=== PATIENT | male | born 1985 | race Caucasian/White ===

== ENCOUNTER 2017-02-26 17:38 | Inpatient (IN) | payer MEDICAID ==
[2017-02-26] MEDS ORDERED: ALBUTEROL NEB 2.5 MG/3 ML INH STA ×2 (18:04→19:17)
[2017-02-26] MEDS ORDERED: IBUPROFEN 800 MG TABLET PO STA (18:05)
[2017-02-26] MEDS ORDERED: DEXAMETHASONE 10 MG/ML VIAL PO STA (18:05)
[2017-02-26] MEDS ORDERED: ONDANSETRON ODT 4 MG TABLET TL STA (18:09)
[2017-02-26] MEDS ORDERED: ONDANSETRON ODT 4 MG TABLET ONE (18:09)
[2017-02-26] MEDS ORDERED: ALBUTEROL NEB 2.5 MG/3 ML INH ONE ×2 (18:11→19:24)
[2017-02-26] MEDS ORDERED: SODIUM CHLORIDE 0.9% 1,000 ML IV ONE ×5 (18:15→20:23)
[2017-02-26] MEDS ORDERED: DEXAMETHASONE 10 MG/ML VIAL ONE (18:46)
[2017-02-26] MEDS ORDERED: CHERRY SYRUP 10 ML UDC PO ONE (18:46)
[2017-02-26] MEDS ORDERED: IBUPROFEN 800 MG TABLET PO ONE (18:46)
[2017-02-26] MEDS ORDERED: ACETAMINOPHEN 325 MG TABLET PO STA (19:30)
[2017-02-26] MEDS ORDERED: ACETAMINOPHEN 325 MG TABLET PO ONE (19:35)
[2017-02-26] MEDS ORDERED: cefTRIAXone 1 GM in SODIUM CHLORIDE 0.9% MINIBAG 100 ML IV STA (19:56)
[2017-02-26] MEDS ORDERED: AZITHROMYCIN INJ 500 MG in SODIUM CHLORIDE 0.9% 250 ML IV STA (19:56)
[2017-02-26] MEDS ORDERED: HYDROmorphone 2 MG TABLET PO PRN (20:21)
[2017-02-26] MEDS ORDERED: ACETAMINOPHEN 325 MG TABLET PO PRN (20:24)
[2017-02-26] MEDS ORDERED: ONDANSETRON 4 MG/2 ML VIAL IVP PRN (20:24)
[2017-02-26] MEDS ORDERED: HYDROmorphone 1 MG/ML SYRINGE IVP PRN (20:24)
[2017-02-26] MEDS ORDERED: cefTRIAXone 1 GM VIAL ONE (20:30)
[2017-02-26] MEDS ORDERED: risperiDONE 1 MG TABLET PO SCH (21:00)
[2017-02-26] MEDS: IPRATROPIUM/ALBUTEROL 3 ML NEB INH SCH (21:40)
[2017-02-26] MEDS ORDERED: traZODone 50 MG TABLET PO SCH ×2 (22:00→22:06)
[2017-02-26] MEDS ORDERED: MIRTAZAPINE 15 MG TABLET PO SCH (22:00)
[2017-02-26] MEDS: methylPREDNISolone SUCCINATE 40 MG/ML VIAL IVP SCH (22:34)
[2017-02-26] MEDS: clonazePAM 0.5 MG TABLET PO SCH (22:37)
[2017-02-26] MEDS: MIRTAZAPINE 15 MG TABLET PO SCH (22:40)
[2017-02-26] MEDS: OXcarbazepine 150 MG TABLET PO SCH (22:43)
[2017-02-26] MEDS: oxyCODONE 5 MG TABLET PO PRN (22:51)
[2017-02-26] MEDS: SODIUM CHLORIDE 0.9% 1,000 ML IV SCH (23:47)
[2017-02-27] MEDS: SODIUM CHLORIDE FLUSH 0.9% 10 ML SYRINGE IVP SCH ×4 (00:34→23:10)
[2017-02-27] MEDS: SODIUM CHLORIDE 0.9% 1,000 ML IV SCH ×5 (04:54→23:37)
[2017-02-27] MEDS: methylPREDNISolone SUCCINATE 40 MG/ML VIAL IVP SCH ×3 (06:51→22:02)
[2017-02-27] MEDS: PANTOPRAZOLE 40 MG TABLET PO SCH (06:53)
[2017-02-27] MEDS: clonazePAM 0.5 MG TABLET PO SCH ×4 (06:54→22:02)
[2017-02-27] MEDS: IPRATROPIUM/ALBUTEROL 3 ML NEB INH SCH ×4 (07:45→19:15)
[2017-02-27] MEDS: SACCHAROMYCES BOULARDII 250 MG CAPSULE PO SCH ×2 (08:12→16:51)
[2017-02-27] MEDS: oxyCODONE 5 MG TABLET PO PRN ×2 (08:12→14:24)
[2017-02-27] MEDS ORDERED: QUEtiapine 25 MG TABLET PO SCH (09:00)
[2017-02-27] MEDS ORDERED: traZODone 50 MG TABLET PO SCH (09:00)
[2017-02-27] MEDS: HYDROmorphone 1 MG/ML SYRINGE IVP PRN ×3 (09:16→22:25)
[2017-02-27] MEDS: buPROPion SR 100 MG TABLET PO SCH (10:05)
[2017-02-27] MEDS: OXcarbazepine 150 MG TABLET PO SCH ×2 (10:05→22:02)
[2017-02-27] MEDS: TAMSULOSIN 0.4 MG CAPSULE PO SCH (10:06)
[2017-02-27] MEDS: POLYETHYLENE GLYCOL 3350 17 GM PACKET PO SCH (10:06)
[2017-02-27] MEDS: IBUPROFEN 400 MG TABLET PO PRN (12:41)
[2017-02-27] MEDS: cefTRIAXone 2 GM in SODIUM CHLORIDE 0.9% MINIBAG 100 ML IV SCH (20:46)
[2017-02-27] MEDS: MIRTAZAPINE 15 MG TABLET PO SCH (22:03)
[2017-02-27] MEDS: traZODone 50 MG TABLET PO SCH (22:03)
[2017-02-27] MEDS: AZITHROMYCIN INJ 500 MG in SODIUM CHLORIDE 0.9% 250 ML IV SCH (22:13)
[2017-02-28] MEDS: oxyCODONE 5 MG TABLET PO PRN ×2 (02:24→15:40)
[2017-02-28] MEDS: HYDROmorphone 1 MG/ML SYRINGE IVP PRN ×5 (02:57→21:25)
[2017-02-28] MEDS: SODIUM CHLORIDE FLUSH 0.9% 10 ML SYRINGE IVP SCH ×4 (02:58→18:23)
[2017-02-28] MEDS: methylPREDNISolone SUCCINATE 40 MG/ML VIAL IVP SCH (06:01)
[2017-02-28] MEDS: PANTOPRAZOLE 40 MG TABLET PO SCH (06:02)
[2017-02-28] MEDS: clonazePAM 0.5 MG TABLET PO SCH ×3 (06:02→21:25)
[2017-02-28] MEDS: IPRATROPIUM/ALBUTEROL 3 ML NEB INH PRN ×3 (07:35→15:15)
[2017-02-28] MEDS: SODIUM CHLORIDE FLUSH 0.9% 10 ML SYRINGE IVP PRN ×4 (07:58→21:25)
[2017-02-28] MEDS: VENLAFAXINE ER 75 MG CAPSULE PO SCH (09:07)
[2017-02-28] MEDS: OXcarbazepine 150 MG TABLET PO SCH ×2 (09:07→20:46)
[2017-02-28] MEDS: SACCHAROMYCES BOULARDII 250 MG CAPSULE PO SCH ×2 (09:07→18:32)
[2017-02-28] MEDS: ARIPiprazole 5 MG TABLET PO SCH (09:07)
[2017-02-28] MEDS: POLYETHYLENE GLYCOL 3350 17 GM PACKET PO SCH (09:08)
[2017-02-28] MEDS: buPROPion SR 100 MG TABLET PO SCH (09:08)
[2017-02-28] MEDS: TAMSULOSIN 0.4 MG CAPSULE PO SCH (09:12)
[2017-02-28] MEDS: cefTRIAXone 2 GM in SODIUM CHLORIDE 0.9% MINIBAG 100 ML IV SCH (20:05)
[2017-02-28] MEDS: AZITHROMYCIN INJ 500 MG in SODIUM CHLORIDE 0.9% 250 ML IV SCH (20:46)
[2017-02-28] MEDS: traZODone 50 MG TABLET PO SCH (20:46)
[2017-02-28] MEDS: MIRTAZAPINE 15 MG TABLET PO SCH (20:46)
[2017-02-28] MEDS: BENZONATATE 100 MG CAPSULE PO PRN (21:25)
[2017-03-01] MEDS: HYDROmorphone 1 MG/ML SYRINGE IVP PRN (01:41)
[2017-03-01] MEDS: IPRATROPIUM/ALBUTEROL 3 ML NEB INH PRN (01:55)
[2017-03-01] MEDS: oxyCODONE 5 MG TABLET PO PRN ×2 (05:18→09:27)
[2017-03-01] MEDS: SODIUM CHLORIDE FLUSH 0.9% 10 ML SYRINGE IVP SCH (06:25)
[2017-03-01] MEDS: clonazePAM 0.5 MG TABLET PO SCH (06:25)
[2017-03-01] MEDS: PANTOPRAZOLE 40 MG TABLET PO SCH (06:25)
[2017-03-01] MEDS: IBUPROFEN 400 MG TABLET PO PRN (06:33)
[2017-03-01] MEDS: BENZONATATE 100 MG CAPSULE PO PRN (06:34)
[2017-03-01] MEDS: POLYETHYLENE GLYCOL 3350 17 GM PACKET PO SCH (08:21)
[2017-03-01] MEDS: SACCHAROMYCES BOULARDII 250 MG CAPSULE PO SCH (08:22)
[2017-03-01] MEDS: TAMSULOSIN 0.4 MG CAPSULE PO SCH (08:22)
[2017-03-01] MEDS: buPROPion SR 100 MG TABLET PO SCH (08:22)
[2017-03-01] MEDS: ARIPiprazole 5 MG TABLET PO SCH (08:22)
[2017-03-01] MEDS: OXcarbazepine 150 MG TABLET PO SCH (08:23)
[2017-03-01] MEDS: VENLAFAXINE ER 75 MG CAPSULE PO SCH (08:24)
[2017-03-01] MEDS ORDERED: methylPREDNISolone SUCCINATE 40 MG/ML VIAL IVP SCH (09:00)
[2017-03-01] MEDS ORDERED: POTASSIUM CHLORIDE 10 MEQ CAPSULE PO SCH (15:00)
== END 2017-03-01 15:30 | disposition home or self-care (01) | DRG 871 ==
DX: A41.9 Sepsis, unspecified organism (principal); J18.9 Pneumonia, unspecified organism; J45.901 Unspecified asthma with (acute) exacerbation; F31.9 Bipolar disorder, unspecified; I95.9 Hypotension, unspecified; R09.02 Hypoxemia; F17.210 Nicotine dependence, cigarettes, uncomplicated; Z63.5 Disruption of family by separation and divorce

== ENCOUNTER 2017-08-13 12:04 | Emergency (ER) | payer MEDICAID ==
--- NOTE | 2017-08-13 12:56 | XRAY Preliminary Report ---
Exam: XR CHEST 2 VIEW PA/LAT IMPRESSION: Normal 2-view chest radiography. [facility] SITE ID: [id number]
--- NOTE | 2017-08-13 12:58 | XRAY Report ---
EXAM: CHEST RADIOGRAPHY EXAM DATE: 08/13/2017 12:44 PM. CLINICAL HISTORY: Cough. COMPARISON: None. TECHNIQUE: 2 views. FINDINGS: Lungs/Pleura: No focal opacities evident. No pleural effusion. No pneumothorax. Normal volumes. Mediastinum: Heart and mediastinal contours are unremarkable. Other: None. IMPRESSION: Normal 2-view chest radiography. [facility] Referring Provider Line: [phone] SITE ID: [id number]
[2017-08-13] MEDS ORDERED: guaiFENesin/DEXTROMETHORPHAN 10 ML UDC PO STA (15:44)
[2017-08-13] MEDS ORDERED: BENZONATATE 100 MG CAPSULE PO STA (15:44)
[2017-08-13] MEDS ORDERED: AZITHROMYCIN 250 MG TABLET PO STA (15:46)
[2017-08-13] MEDS ORDERED: guaiFENesin/DEXTROMETHORPHAN 10 ML UDC ONE (15:56)
[2017-08-13] MEDS ORDERED: BENZONATATE 100 MG CAPSULE PO ONE (15:56)
[2017-08-13] MEDS ORDERED: AZITHROMYCIN 250 MG TABLET PO ONE (15:56)
[2017-08-13 16:05] LABS: BASOPHILS # (AUTO) 0.1 10^3/uL (0.0-0.1); BASOPHILS % (AUTO) 0.7 %; EOSINOPHILS # (AUTO) 0.1 10^3/uL (0.0-0.7); EOSINOPHILS % (AUTO) 1.3 %; HCT - HEMATOCRIT 46.9 % (42.0-52.0); HGB - HEMOGLOBIN 15.9 g/dL (14.0-18.0); LYMPHOCYTES # (AUTO) 2.9 10^3/uL (1.5-3.5); LYMPHOCYTES % (AUTO) 35.5 %; MEAN CORPUSCULAR HEMOGLOBIN 29.8 pg (27.0-31.0); MEAN CORPUSCULAR HGB CONC 33.8 g/dL (32.0-36.0); MEAN CORPUSCULAR VOLUME 88.2 fL (80.0-94.0); MEAN PLATELET VOLUME 8.4 fL (7.4-11.4); MONOCYTES # (AUTO) 0.4 10^3/uL (0.0-1.0); MONOCYTES % (AUTO) 5.4 %; NEUTROPHILS # (AUTO) 4.6 10^3/uL (1.5-6.6); NEUTROPHILS % (AUTO) 57.1 %; NUCLEATED RED BLOOD CELLS AUTO 0.1 /100WBC; RED BLOOD COUNT 5.32 10^6/uL (4.70-6.10); RED CELL DISTRIBUTION WIDTH 13.2 % (12.0-15.0); UNCORRECTED WHITE BLOOD COUNT 8.1 x10^3/uL; WHITE BLOOD COUNT 8.1 x10^3/uL (4.8-10.8)
[2017-08-13 16:22] LABS: CALCIUM 9.5 mg/dL (8.5-10.3); POTASSIUM 4.1 mmol/L (3.5-5.0)
[2017-08-13 17:35] VITALS: BP 114/69
--- NOTE | 2017-08-13 17:39 | ED Physician Documentation ---
History of Present Illness - Stated complaint Stated Complaint: FEVER/COUGH/BODY ACHE - Chief complaint Chief Complaint: Resp - Additonal information Additional information: hx from pt 32 male to ER f with fever cough body aches fatigue states he hd same sx last spring and had pna with sepsis and was admitted for several days he had an abn CXR and CT at that time and fup imaging was recommended but it does not seem that has been done - or at last not in the [facility] he has life stressors and per last H&P asthma but no other major underlying medical problems Review of Systems Constitutional: reports: Fever, Myalgias, Fatigue. denies: Chills Throat: denies: Sore throat Respiratory: reports: Cough GI: denies: Vomiting, Diarrhea Immunocompromised: denies: Immunocompromised PD PAST MEDICAL HISTORY - Past Medical History Cardiovascular: None Respiratory: None Neuro: None Endocrine/Autoimmune: None GI: None : None HEENT: None Psych: Depression, Anxiety, Bipolar disorder, Panic attacks Musculoskeletal: None Derm: None - Past Surgical History Past Surgical History: Yes HEENT: Myringotomy (tubes), Tonsil/Adenoidectomy - Present Medications Home Medications: Ambulatory Orders Medication Instructions Recorded Confirmed traZODone [Desyrel] 200 mg PO QPM 10/17/15 02/27/17 Clonazepam 1 mg PO TID PRN 11/19/15 02/27/17 OXcarbazepine [Trileptal] 600 mg ORAL BID 12/31/15 02/27/17 Ibuprofen [Motrin] 400 mg PO Q6H PRN #30 tablet 01/08/16 02/27/17 buPROPion [Wellbutrin Sr] 400 mg ORAL DAILY 07/22/16 02/27/17 Aripiprazole [Abilify] 10 mg PO DAILY 02/27/17 02/27/17 Mirtazapine [Remeron] 30 mg PO QPM 02/27/17 02/27/17 Venlafaxine HCl [Venlafaxine HCl 150 mg PO DAILY 02/27/17 02/27/17 ER] Benzonatate [Tessalon] 100 mg PO TID PRN #40 capsule 03/01/17 Cefuroxime Axetil [Ceftin] 250 mg PO Q12H #20 tablet 03/01/17 Oxycodone HCl 5 mg PO Q4HR PRN #28 tablet 03/01/17 Venlafaxine ER [Effexor ER] 150 mg PO DAILY capsule 03/01/17 Azithromycin [Zithromax] 250 mg PO DAILY #4 tablet 08/13/17 Benzonatate [Tessalon] 100 mg PO TID PRN #20 capsule 08/13/17 guaiFENesin/DEXTROMETHORPHAN 10 ml PO Q6H PRN #120 ml 08/13/17 [Robitussin Dm] - Allergies Allergies/Adverse Reactions: Allergies Allergy/AdvReac Type Severity Reaction Status Date / Time No Known Drug Allergies Allergy Verified 08/13/17 12:27 - Social History Does the pt smoke?: Yes Smoking Status: Current every day smoker Does the pt drink ETOH?: No Does the pt have substance abuse?: No - Immunizations Immunizations are current?: Yes - POLST Patient has POLST: No PD ED PE NORMAL - Vitals Vital signs reviewed: Yes - General General: Alert and oriented X 3 - HEENT HEENT: PERRL, Ears normal, Moist mucous membranes, Other (appears exhausted) - Neck Neck: Supple, no meningeal sign - Cardiac Cardiac: RRR - Respiratory Respiratory: No respiratory distress, Clear bilaterally - Derm Derm: Normal color - Extremities Extremities: No edema, No calf tenderness / cord - Neuro Neuro: Alert and oriented X 3, No motor deficit Results - Vitals Vitals: Vital Signs - 24 hr 08/13/17 08/13/17 08/13/17 12:23 15:41 17:29 Temperature 37.1 C Heart Rate 98 84 84 Respiratory 18 20 16 Rate Blood Pressure 119/73 123/75 114/69 O2 Saturation 100 100 96 Oxygen O2 Source Room air - Labs Labs: Laboratory Tests 08/13/17 08/13/17 08/13/17 16:00 16:00 16:00 WBC 8.1 RBC 5.32 Hgb 15.9 Hct 46.9 MCV 88.2 MCH 29.8 MCHC 33.8 RDW 13.2 Plt Count 172 MPV 8.4 Neut # 4.6 Lymph # 2.9 [place] # 0.4 Eos # 0.1 Baso # 0.1 Absolute Nucleated RBC 0.01 Nucleated RBC % 0.1 Sodium 142 Potassium 4.1 Chloride 103 Carbon Dioxide 28 Anion Gap 11.0 BUN 14 Creatinine 1.0 Estimated GFR (MDRD) 87 L Glucose 91 Lactic Acid 1.0 Calcium 9.5 Influenza A (Rapid) Influenza B (Rapid) Influenza Types A,B Ag 08/13/17 16:00 WBC RBC Hgb Hct MCV MCH MCHC RDW Plt Count MPV Neut # Lymph # [place] # Eos # Baso # Absolute Nucleated RBC Nucleated RBC % Sodium Potassium Chloride Carbon Dioxide Anion Gap BUN Creatinine Estimated GFR (MDRD) Glucose Lactic Acid Calcium Influenza A (Rapid) Negative Influenza B (Rapid) Negative Influenza Types A,B Ag - - Rads (name of study) CXR Radiology: See rad report (neg) PD MEDICAL DECISION MAKING - ED course ED course: neg CXR liekly viral but given that pt has pna and sepsis with similar sx last spring and a fairly unimpressive CXR at that time, did start ab and get blood work lactate etc - all ended up being neg - so will dc - given hx yang with similar sx and since started ab pending wup results will complete the [facility] Departure - Departure Disposition: Home, Self Care Clinical Impression: Bronchitis Condition: Good Prescriptions: Azithromycin [Zithromax] 250 mg PO DAILY #4 tablet Benzonatate [Tessalon] 100 mg PO TID PRN #20 capsule PRN Reason: to ease cough guaiFENesin/DEXTROMETHORPHAN [Robitussin Dm] 10 ml PO Q6H PRN #120 ml PRN Reason: Cough Comments: The xray does not show pneumonia The labs and your vital signs were OK - I don't think you have sepsis this time. Given that you had such severe pneumonia with similar symptoms last spring, i did start antibiotics while your tests were running - now that antibiotics have been started the course should be completed I also prescribed medications to ease your cough and a note for work The xray today was fine - but the xray and CT scan were abnormal last spring and follow up imaging was suggested - please follow up with your PMD to see if you need a follow up CT scan Forms: Activity restrictions
== END 2017-08-13 18:29 | disposition home or self-care (01) ==
LOC: ED 12:04
DX: J40 Bronchitis, not specified as acute or chronic (principal); F17.200 Nicotine dependence, unspecified, uncomplicated
CPT/HCPCS: 36415; 71020; 80048; 83605; 85025; 87275; 87276; 99283; A9270

== ENCOUNTER 2017-11-02 15:11 | Emergency (ER) | payer MEDICAID ==
--- NOTE | 2017-11-02 16:09 | XRAY Preliminary Report ---
Exam: XR CHEST 2 VIEW X-RAY IMPRESSION: No focal consolidation. [facility] SITE ID: [id number]
--- NOTE | 2017-11-02 16:09 | XRAY Report ---
EXAM: CHEST RADIOGRAPHY EXAM DATE: 11/02/2017 03:56 PM. CLINICAL HISTORY: Cough. COMPARISON: None. TECHNIQUE: 2 views. FINDINGS: Lungs/Pleura: No focal opacities evident. No pleural effusion. No pneumothorax. Normal volumes. Mediastinum: Heart and mediastinal contours are unremarkable. Other: None. IMPRESSION: No focal consolidation. [facility] Referring Provider Line: [phone] SITE ID: [id number]
--- NOTE | 2017-11-02 16:35 | ED Physician Documentation ---
PD HPI URI - Stated complaint Stated Complaint: COLD SYMPTOMS - Chief complaint Chief Complaint: Resp - History obtained from History obtained from: Patient - History of Present Illness Timing - onset: How many weeks ago (several) Timing duration: Weeks (several) Pain level max: 0 Pain level now: 0 Associated symptoms: Nasal congestion, Rhinorrhea, Productive cough (green). No : Fever, Chills, Sore throat, Hemoptysis, Chest pain, Dyspnea Contributing factors: Sick contact Improves by: Rest Worsened by: Activity, Breathing Similar symptoms before: Diagnosis (pneumonia) Recently seen: Not recently seen Review of Systems Constitutional: denies: Fever, Chills GI: denies: Vomiting Skin: denies: Rash Neurologic: denies: Headache PD PAST MEDICAL HISTORY - Past Medical History Cardiovascular: None Respiratory: None, Pneumonia Neuro: None Endocrine/Autoimmune: None GI: None : None HEENT: None Psych: Depression, Anxiety, Bipolar disorder, Panic attacks Musculoskeletal: None Derm: None Other Past Medical History: Septic - Past Surgical History Past Surgical History: Yes HEENT: Myringotomy (tubes), Tonsil/Adenoidectomy - Present Medications Home Medications: Ambulatory Orders Medication Instructions Recorded Confirmed traZODone [Desyrel] 200 mg PO QPM 10/17/15 11/02/17 clonazePAM [Clonazepam] 1 mg PO TID PRN 11/19/15 11/02/17 OXcarbazepine [Trileptal] 600 mg ORAL BID 12/31/15 11/02/17 Ibuprofen [Motrin] 400 mg PO Q6H PRN #30 tablet 01/08/16 11/02/17 buPROPion [Wellbutrin Sr] 400 mg ORAL DAILY 07/22/16 11/02/17 Aripiprazole [Abilify] 10 mg PO DAILY 02/27/17 11/02/17 Mirtazapine [Remeron] 30 mg PO QPM 02/27/17 11/02/17 Venlafaxine HCl [Venlafaxine HCl 150 mg PO DAILY 02/27/17 11/02/17 ER] Benzonatate [Tessalon] 100 mg PO TID PRN #40 capsule 03/01/17 11/02/17 Oxycodone HCl 5 mg PO Q4HR PRN #28 tablet 03/01/17 11/02/17 Venlafaxine ER [Effexor ER] 150 mg PO DAILY capsule 03/01/17 11/02/17 cefUROXime axetil [Ceftin] 250 mg PO Q12H #20 tablet 03/01/17 11/02/17 Azithromycin [Zithromax] 250 mg PO DAILY #4 tablet 08/13/17 11/02/17 Benzonatate [Tessalon] 100 mg PO TID PRN #20 capsule 08/13/17 11/02/17 guaiFENesin/DEXTROMETHORPHAN 10 ml PO Q6H PRN #120 ml 08/13/17 11/02/17 [Robitussin Dm] Cetirizine HCl/Pseudoephedrine 1 each PO BID PRN #30 tab.er.12h 11/02/17 [Zyrtec-D Tablet] Cholecalciferol [Vitamin D3] 11/02/17 Multivitamin [Multiple Vitamins] 11/02/17 guaiFENesin [Guaifenesin] 400 mg PO Q6H PRN #20 tablet 11/02/17 - Allergies Allergies/Adverse Reactions: Allergies Allergy/AdvReac Type Severity Reaction Status Date / Time No Known Drug Allergies Allergy Verified 08/13/17 12:27 - Social History Does the pt smoke?: Yes Smoking Status: Current every day smoker Does the pt drink ETOH?: No Does the pt have substance abuse?: No - Immunizations Immunizations are current?: Yes - POLST Patient has POLST: No PD ED PE NORMAL - Vitals Vital signs reviewed: Yes - General General: Alert and oriented X 3, No acute distress - HEENT HEENT: PERRL, Ears normal, Moist mucous membranes, Pharynx benign - Neck Neck: Supple, no meningeal sign, No adenopathy - Cardiac Cardiac: RRR, Strong equal pulses - Respiratory Respiratory: No respiratory distress, Clear bilaterally - Abdomen Abdomen: Soft, Non tender, Non distended - Derm Derm: Warm and dry, No rash - Neuro Neuro: Alert and oriented X 3 - Psych Psych: Normal mood, Normal affect Results - Vitals Vitals: Vital Signs - 24 hr 11/02/17 11/02/17 15:29 16:41 Temperature 37.4 C Heart Rate 99 92 Respiratory 20 18 Rate Blood Pressure 121/77 101/73 O2 Saturation 97 98 Oxygen O2 Source Room air - Rads (name of study) cxr Radiology: Prelim report reviewed, EMP read contemporaneously, See rad report ( No focal consolidation) PD MEDICAL DECISION MAKING - ED course Complexity details: reviewed results, re-evaluated patient, considered differential, d/w patient ED course: Patient is a 32-year-old male who presents to the emergency department what appears to be a viral upper respiratory infection. No pneumonia. No sepsis. No hypoxia. No respiratory distress. We will continue supportive care and follow-up with his doctor. Patient counseled regarding signs and symptoms for which I believe and urgent re-evaluation would be necessary. Patient with good understanding of and agreement to plan and is comfortable going home at this time This document was made in part using voice recognition software. While efforts are made to proofread this document, sound alike and grammatical errors may occur. Departure - Departure Disposition: 01 Home, Self Care Clinical Impression: Viral syndrome Condition: Good Instructions: ED Viral Syndrome Follow-Up: your,doctor in 1 week [Other] Prescriptions: Cetirizine HCl/Pseudoephedrine [Zyrtec-D Tablet] 1 each PO BID PRN #30 tab.er.12h PRN Reason: Nasal Congestion guaiFENesin [Guaifenesin] 400 mg PO Q6H PRN #20 tablet PRN Reason: Cough Comments: Return if you worsen. This should improve over the next week or so. Discharge Date/Time: 11/02/17 16:48
[2017-11-02 16:45] VITALS: BP 101/73
== END 2017-11-02 16:48 | disposition home or self-care (01) ==
LOC: ED 15:11
DX: B34.9 Viral infection, unspecified (principal); F17.200 Nicotine dependence, unspecified, uncomplicated
CPT/HCPCS: 71046; 99283

== ENCOUNTER 2018-05-04 00:46 | Emergency (ER) | payer MEDICAID ==
[2018-05-04 01:02] VITALS: BP 136/86
--- NOTE | 2018-05-04 01:55 | XRAY Report ---
Procedure Date: 05/04/2018 Accession Number: [id number] / [id number] Procedure: XR - Wrist 4 View LT CPT Code: FULL RESULT: EXAM: LEFT WRIST RADIOGRAPHY EXAM DATE: 05/04/2018 01:19 AM. CLINICAL HISTORY: Wrist injury. COMPARISON: None. TECHNIQUE: 4 views. FINDINGS: Bones: No acute fractures or suspicious bone lesions. Joints: No subluxations. Soft Tissues: Unremarkable. IMPRESSION: No acute radiographic abnormalities. [facility]
--- NOTE | 2018-05-04 03:21 | ED Physician Documentation ---
History of Present Illness - Stated complaint Stated Complaint: LT WRIST PAIN - Chief complaint Chief Complaint: Ext Problem - History obtained from History obtained from: Patient - History of Present Illness Timing: How many weeks ago ("a couple of weeks" (per patient)) Pain level now: 4 Improved by: rest, splint (has from previous injury to other wrist: the splint can be used on either side) Worsened by: movement - Additonal information Additional information: c/o "a couple of weeks" of left wrist pain, described as burning and on ulnar aspect (when I ask about his reference to "ulna", he explains that 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 Pain first started suddenly when he was performing heavy lifting; no specific injury to that site. 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 He says he called [facility] and soonest appointment was 6 weeks; per patient, he was instructed to go to ED, although he also says he did schedule the appointment as well Review of Systems Musculoskeletal: reports: Extremity pain, Joint pain (left wrist). denies: Extremity swelling, Joint swelling Neurologic: denies: Focal weakness, Numbness PD PAST MEDICAL HISTORY - Past Medical History Cardiovascular: None Respiratory: None, Pneumonia Endocrine/Autoimmune: None GI: None : None HEENT: None Psych: Depression, Anxiety, Bipolar disorder, Panic attacks Musculoskeletal: None Derm: None - Past Surgical History Past Surgical History: Yes HEENT: Myringotomy (tubes), Tonsil/Adenoidectomy - Present Medications Home Medications: Ambulatory Orders Medication Instructions Recorded Confirmed traZODone [Desyrel] 200 mg PO QPM 10/17/15 11/02/17 clonazePAM [Clonazepam] 1 mg PO TID PRN 11/19/15 11/02/17 OXcarbazepine [Trileptal] 600 mg ORAL BID 12/31/15 11/02/17 Ibuprofen [Motrin] 400 mg PO Q6H PRN #30 tablet 01/08/16 11/02/17 buPROPion [Wellbutrin Sr] 400 mg ORAL DAILY 07/22/16 11/02/17 Aripiprazole [Abilify] 10 mg PO DAILY 02/27/17 11/02/17 Mirtazapine [Remeron] 30 mg PO QPM 02/27/17 11/02/17 Venlafaxine HCl [Venlafaxine HCl 150 mg PO DAILY 02/27/17 11/02/17 ER] Benzonatate [Tessalon] 100 mg PO TID PRN #40 capsule 03/01/17 11/02/17 Oxycodone HCl 5 mg PO Q4HR PRN #28 tablet 03/01/17 11/02/17 Venlafaxine ER [Effexor ER] 150 mg PO DAILY capsule 03/01/17 11/02/17 cefUROXime axetil [Ceftin] 250 mg PO Q12H #20 tablet 03/01/17 11/02/17 Azithromycin [Zithromax] 250 mg PO DAILY #4 tablet 08/13/17 11/02/17 Benzonatate [Tessalon] 100 mg PO TID PRN #20 capsule 08/13/17 11/02/17 guaiFENesin/DEXTROMETHORPHAN 10 ml PO Q6H PRN #120 ml 08/13/17 11/02/17 [Robitussin Dm] Cetirizine HCl/Pseudoephedrine 1 each PO BID PRN #30 tab.er.12h 11/02/17 [Zyrtec-D Tablet] Cholecalciferol [Vitamin D3] 11/02/17 Multivitamin [Multiple Vitamins] 11/02/17 guaiFENesin [Guaifenesin] 400 mg PO Q6H PRN #20 tablet 11/02/17 Hydrocodone/Acetaminophen 1 - 2 each PO Q6HR PRN #14 tablet 05/04/18 [Hydrocodone-Acetamin 5-325 mg] - Allergies Allergies/Adverse Reactions: Allergies Allergy/AdvReac Type Severity Reaction Status Date / Time No Known Drug Allergies Allergy Verified 05/04/18 01:02 - Social History Does the pt smoke?: Yes Smoking Status: Current every day smoker Does the pt drink ETOH?: No Does the pt have substance abuse?: No - Immunizations Immunizations are current?: Yes - POLST Patient has POLST: No PD ED PE NORMAL - Vitals Vital signs reviewed: Yes - General General: Alert and oriented X 3, No acute distress, Well developed/nourished - Derm Derm: Normal color, Warm and dry, No rash - Extremities Extremities: No edema - Neuro Neuro: No motor deficit, No sensory deficit PD ED PE EXPANDED - Extremities SHOLA UE/Hands Visual: 1 - tenderness (tenderness at lateral aspect of distal ulna without swelling, crepitus, or deformity. no erythema) Results - Vitals Vitals: Vital Signs - 24 hr 05/04/18 00:57 Temperature 36.8 C Heart Rate 90 Respiratory 18 Rate Blood Pressure 136/86 H O2 Saturation 98 Oxygen O2 Source Room air - Rads (name of study) left wrist xrays Radiology: Prelim report reviewed, See rad report PD MEDICAL DECISION MAKING - ED course Complexity details: reviewed results, re-evaluated patient, considered differential, d/w patient - Sepsis Event Vital Signs: Vital Signs - 24 hr 05/04/18 00:57 Temperature 36.8 C Heart Rate 90 Respiratory 18 Rate Blood Pressure 136/86 H O2 Saturation 98 Oxygen O2 Source Room air Departure - Departure Disposition: 01 Home, Self Care Clinical Impression: Left wrist sprain Condition: Good Instructions: ED Sprain Wrist Follow-Up: Stephen Angeles MD [Provider Admit Priv/Credential] - Within 1 week Prescriptions: Hydrocodone/Acetaminophen [Hydrocodone-Acetamin 5-325 mg] 1 - 2 each PO Q6HR PRN #14 tablet PRN Reason: Pain Discharge Date/Time: 05/04/18 04:26
[2018-05-04] MEDS ORDERED: HYDROcod/ACET 5/325 Prepack 4 PO STA (03:56)
== END 2018-05-04 04:26 | disposition home or self-care (01) ==
LOC: ED 00:46
DX: S63.502A Unspecified sprain of left wrist, initial encounter (principal); W19.XXXA Unspecified fall, initial encounter; F17.200 Nicotine dependence, unspecified, uncomplicated
CPT/HCPCS: 99283

== ENCOUNTER 2018-06-14 09:50 | Outpatient (CLI) | payer MEDICAID ==
[2018-06-14 19:57] LABS: BILIRUBIN,URINE NEGATIVE (NEGATIVE); GLUCOSE, URINE (UA) NEGATIVE (NEGATIVE); KETONES,URINE (UA) NEGATIVE (NEGATIVE); LEUKOCYTE ESTERASE, URINE NEGATIVE (NEGATIVE); NITRITE,URINE NEGATIVE (NEGATIVE); OCCULT BLOOD,URINE NEGATIVE (NEGATIVE); PH,URINE 5.5 PH (5.0-7.5); PROTEIN,URINE NEGATIVE (NEGATIVE); UROBILINOGEN,URINE 0.2 (NORMAL) E.U./dL (NORMAL)
[2018-06-14 20:07] LABS: BACTERIA,URINE None Seen /HPF (None Seen); CLARITY,URINE CLEAR (CLEAR); CRYSTALS,URINE 3-5 Calcium Oxalate /LPF; MUCUS,URINE Moderate Strands; RBC,URINE None Seen /HPF (0-5); SQUAMOUS EPITHELIAL CELL,UR NONE SEEN (<= Few)
== END 2018-06-14 09:51 | disposition home or self-care (01) ==
LOC: LAB.R 09:50
PROVIDERS: ATTEND Nurse Practitioner
DX: R32 Unspecified urinary incontinence (principal)
CPT/HCPCS: 81001; 87086; 87491; 87591

== ENCOUNTER 2018-06-28 09:59 | Outpatient (CLI) | payer MEDICAID ==
[2018-06-28 12:44] LABS: BASOPHILS % (AUTO) 0.6 %; EOSINOPHILS # (AUTO) 0.1 10^3/uL (0.0-0.7); EOSINOPHILS % (AUTO) 0.9 %; HGB - HEMOGLOBIN 15.8 g/dL (14.0-18.0); LYMPHOCYTES # (AUTO) 2.1 10^3/uL (1.5-3.5); LYMPHOCYTES % (AUTO) 33.8 %; MEAN CORPUSCULAR HEMOGLOBIN 30.5 pg (27.0-31.0); MEAN CORPUSCULAR HGB CONC 34.3 g/dL (32.0-36.0); MONOCYTES # (AUTO) 0.3 10^3/uL (0.0-1.0); MONOCYTES % (AUTO) 5.1 %; NEUTROPHILS # (AUTO) 3.7 10^3/uL (1.5-6.6); NEUTROPHILS % (AUTO) 59.6 %; PLT - PLATELET COUNT 195 10^3/uL (130-450); RED BLOOD COUNT 5.17 10^6/uL (4.70-6.10); RED CELL DISTRIBUTION WIDTH 13.1 % (12.0-15.0); WHITE BLOOD COUNT 6.2 x10^3/uL (4.8-10.8)
[2018-06-28 12:53] LABS: ALBUMIN 4.3 g/dL (3.2-5.5); ALBUMIN/GLOBULIN RATIO 1.4 (1.0-2.2); BILIRUBIN,TOTAL 0.5 mg/dL (0.2-1.0); CALCIUM 8.8 mg/dL (8.5-10.3); CREATININE 0.9 mg/dL (0.6-1.2); TOTAL PROTEIN 7.3 g/dL (6.7-8.2)
[2018-06-29 13:01] LABS: HEPATITIS C ANTIBODY NON-REACTIVE (NON-REACTIVE)
[2018-06-29 14:07] LABS: HIV AG/AB 4TH GEN NON-REACTIVE (NON-REACTIVE)
[2018-06-30 13:56] LABS: HSV 1 IGG TYPE SPECIFIC AB 4.22 index; HSV 2 IGG TYPE SPECIFIC AB <0.90 index
== END 2018-06-28 10:00 | disposition home or self-care (01) ==
LOC: LAB.N 09:59
PROVIDERS: ATTEND Nurse Practitioner
DX: R32 Unspecified urinary incontinence (principal); N32.89 Other specified disorders of bladder
CPT/HCPCS: 36415; 80053; 81599; 84153; 85025; 86592; 86695; 86696; 86803; 87389; 87491; 87591

== ENCOUNTER 2018-08-03 15:39 | Outpatient (CLI) | payer MEDICAID | END 2018-08-03 15:40 | disposition critical access hospital (66) | LOC: EMS 15:39 | PROVIDERS: ATTEND Surgery | DX: R07.9 Chest pain, unspecified (principal) | CPT/HCPCS: A0425; A0427; A0999 ==

== ENCOUNTER 2018-08-03 16:06 | Emergency (ER) | payer MEDICAID ==
--- NOTE | 2018-08-03 16:51 | ED Physician Documentation ---
PD HPI CHEST PAIN - Stated complaint Stated Complaint: CP - Chief complaint Chief Complaint: Cardiac - History obtained from History obtained from: Patient - History of Present Illness Timing - onset: Today Timing - onset during: Rest Timing - duration: Hours (1-2) Timing - details: Abrupt onset (sitting with friends at table and had abrupt onset very sharp left sided chest pain. Hurts to talk and deep breath, as well as moving.), Still present Quality: Aching, Sharp. No: Pressure Location: Substernal, Left chest Radiation: Neck, Left upper extremity Improved by: No: Rest Associated symptoms: No: Shortness of air, Feeling faint / dizzy Similar symptoms before: Diagnosis (feels similar to PTX she had when 14 years ago.) Review of Systems Constitutional: denies: Fever, Chills, Myalgias Nose: denies: Rhinorrhea / runny nose, Congestion Throat: reports: Sore throat, Swollen tonsils. denies: Dental pain / toothache Cardiac: reports: Chest pain / pressure, Palpitations. denies: Pedal edema, Calf pain Respiratory: reports: Dyspnea. denies: Cough GI: denies: Abdominal Pain, Nausea, Constipation : denies: Dysuria, Frequency Skin: denies: Rash, Lesions PD PAST MEDICAL HISTORY - Past Medical History Cardiovascular: None Respiratory: None, Pneumonia Endocrine/Autoimmune: None GI: None : None HEENT: None Psych: Depression, Anxiety, Bipolar disorder, Panic attacks Musculoskeletal: None Derm: None Other Past Medical History: Spontaneous pneumo - Past Surgical History Past Surgical History: Yes HEENT: Myringotomy (tubes), Tonsil/Adenoidectomy - Present Medications Home Medications: Ambulatory Orders Medication Instructions Recorded Confirmed clonazePAM [Clonazepam] 1 mg PO TID PRN 11/19/15 08/03/18 OXcarbazepine [Trileptal] 600 mg ORAL BID 12/31/15 08/03/18 buPROPion [Wellbutrin Sr] 400 mg ORAL DAILY 07/22/16 08/03/18 Aripiprazole [Abilify] 10 mg PO DAILY 02/27/17 08/03/18 Naproxen 375 mg PO BID #20 tablet 08/03/18 Tramadol HCl 50 mg PO Q6H PRN #15 tablet 08/03/18 - Allergies Allergies/Adverse Reactions: Allergies Allergy/AdvReac Type Severity Reaction Status Date / Time No Known Drug Allergies Allergy Verified 08/03/18 16:21 - Social History Does the pt smoke?: Yes Smoking Status: Current every day smoker Does the pt drink ETOH?: No Does the pt have substance abuse?: No - Immunizations Immunizations are current?: Yes - POLST Patient has POLST: No PD ED PE NORMAL - Vitals Vital signs reviewed: Yes - General General: Alert and oriented X 3, No acute distress, Well developed/nourished - HEENT HEENT: Ears normal, Pharynx benign - Neck Neck: Supple, no meningeal sign, No adenopathy - Cardiac Cardiac: RRR, No murmur - Respiratory Respiratory: No respiratory distress, Clear bilaterally Results - Vitals Vitals: Vital Signs - 24 hr 08/03/18 16:07 Temperature 36.4 C L Heart Rate 83 Respiratory 16 Rate Blood Pressure 120/87 H O2 Saturation 98 Oxygen O2 Source Room air - EKG (time done) 16:08 Rate: Rate (enter#) (68) Rhythm: NSR [place]: Normal Intervals: Normal GA QRS: Normal Ischemia: Normal ST segments. No: ST elevation c/w ischemia, ST depression - Rads (name of study) chest xray Radiology: Prelim report reviewed (normal) chest CT-A Radiology: Prelim report reviewed (no acute process. ) PD MEDICAL DECISION MAKING - ED course Complexity details: reviewed results, considered differential, d/w patient - Sepsis Event Vital Signs: Vital Signs - 24 hr 08/03/18 16:07 Temperature 36.4 C L Heart Rate 83 Respiratory 16 Rate Blood Pressure 120/87 H O2 Saturation 98 Oxygen O2 Source Room air Departure - Departure Disposition: 01 Home, Self Care Clinical Impression: Chest pain Qualifiers: Chest pain type: precordial pain Qualified Code(s): R07.2 - Precordial pain Condition: Stable Record reviewed to determine appropriate education?: Yes Instructions: ED Chest Pain Costochondritis Follow-Up: Yolette Glasgow DNP [Primary Care Provider] - Prescriptions: Naproxen 375 mg PO BID #20 tablet Tramadol HCl 50 mg PO Q6H PRN #15 tablet PRN Reason: Pain Comments: Your tests are normal here without showing any signs of collapsed lung, fluid in the lung, heart injury, blood clots or other vascular problems. I presume it is musculoskeletal pain given the sharp character of it. I would suggest some naproxen anti-inflammatories twice daily for the next 7-10 days. Add Tylenol or Tramadol if needed for pain. Discharge Date/Time: 08/03/18 19:31
[2018-08-03] MEDS ORDERED: MORPHINE 10 MG/ML VIAL IVP STA (17:00)
[2018-08-03] MEDS ORDERED: KETOROLAC 60 MG/2 ML VIAL IVP STA (17:00)
--- NOTE | 2018-08-03 17:16 | XRAY Report ---
Reason: chest pain Procedure Date: 08/03/2018 Accession Number: [id number] / [id number] Procedure: XR - Chest 1 View X-Ray CPT Code: 49578 FULL RESULT: EXAM: CHEST RADIOGRAPHY EXAM DATE: 08/03/2018 04:53 PM. CLINICAL HISTORY: Chest pain. COMPARISON: 11/02/2017. TECHNIQUE: 1 view. FINDINGS: Lungs/Pleura: Clear. No effusion or pneumothorax. Mediastinum: Within exam limitations, the cardiomediastinal contour is normal. Upper lobe vessels not distended. Other: None. IMPRESSION: Normal single view chest. [facility]
[2018-08-03 17:22] LABS: BASOPHILS # (AUTO) 0.1 10^3/uL (0.0-0.1); BASOPHILS % (AUTO) 0.9 %; EOSINOPHILS # (AUTO) 0.1 10^3/uL (0.0-0.7); EOSINOPHILS % (AUTO) 1.3 %; HGB - HEMOGLOBIN 15.1 g/dL (14.0-18.0); LYMPHOCYTES # (AUTO) 2.7 10^3/uL (1.5-3.5); LYMPHOCYTES % (AUTO) 46.4 %; MEAN CORPUSCULAR HEMOGLOBIN 29.9 pg (27.0-31.0); MEAN CORPUSCULAR HGB CONC 34.1 g/dL (32.0-36.0); MEAN CORPUSCULAR VOLUME 87.7 fL (80.0-94.0); MEAN PLATELET VOLUME 7.8 fL (7.4-11.4); MONOCYTES # (AUTO) 0.3 10^3/uL (0.0-1.0); MONOCYTES % (AUTO) 5.8 %; NEUTROPHILS # (AUTO) 2.7 10^3/uL (1.5-6.6); NEUTROPHILS % (AUTO) 45.6 %; PLT - PLATELET COUNT 169 10^3/uL (130-450); RED BLOOD COUNT 5.05 10^6/uL (4.70-6.10); RED CELL DISTRIBUTION WIDTH 13.1 % (12.0-15.0); WHITE BLOOD COUNT 5.9 x10^3/uL (4.8-10.8)
[2018-08-03] MEDS ORDERED: IOPAMIDOL-300 100 ML VIAL ONE (17:24)
[2018-08-03 17:38] LABS: ALBUMIN 4.2 g/dL (3.2-5.5); ALBUMIN/GLOBULIN RATIO 1.5 (1.0-2.2); ALKALINE PHOSPHATASE 70 IU/L (42-121); ALT ALANINE AMINOTRANSFERASE 22 IU/L (10-60); AST ASPARTATE AMINOTRANSFERASE 21 IU/L (10-42); BILIRUBIN,TOTAL 0.4 mg/dL (0.2-1.0); BUN - BLOOD UREA NITROGEN 15 mg/dL (6-20); CALCIUM 8.8 mg/dL (8.5-10.3); CARBON DIOXIDE - CO2 29 mmol/L (21-32); CHLORIDE 105 mmol/L (101-111); GFR - MDRD 86 (>89); GLUCOSE 95 mg/dL (70-100); LIPASE 32 U/L (22-51); SODIUM 140 mmol/L (135-145)
[2018-08-03] MEDS ORDERED: IOPAMIDOL-300 100 ML VIAL IVP ONE (17:53)
--- NOTE | 2018-08-03 18:11 | CT Report ---
Reason: left chest pain abrupt today; h/o PTX when younger Procedure Date: 08/03/2018 Accession Number: [id number] / [id number] Procedure: CT - Chest W/ CPT Code: FULL RESULT: EXAM: CT CHEST WITH CONTRAST. EXAM DATE: 08/03/2018 05:51 PM. CLINICAL HISTORY: Left chest pain abrupt today, history of pneumothorax when younger. COMPARISONS: Chest without 02/26/2017 9:00 PM. TECHNIQUE: Routine helical CT imaging was performed through the chest. IV contrast: 80 cc of Isovue-300. Reconstructions: Coronal and sagittal. In accordance with CT protocol optimization, one or more of the following dose reduction techniques were utilized for this exam: automated exposure control, adjustment of mA and/or KV based on patient size, or use of iterative reconstructive technique. FINDINGS: Lungs/Pleura: No nodules, bronchial thickening, consolidation, or edema. Pulmonary vasculature is normal. No pericardial or pleural effusion. No pneumothorax. Mediastinum: Normal. No adenopathy or masses. The heart and great vessels are normal. Bones: Unremarkable. Visualized Abdomen: Unremarkable. Other: Homogeneous enhancement of the thyroid gland. No thyroid nodule or mass. No supraclavicular or axillary lymphadenopathy identified. IMPRESSION: 1. Lungs are clear. No acute pulmonary process. 2. No adenopathy. [facility]
[2018-08-03 19:31] VITALS: BP 117/65
== END 2018-08-03 19:31 | disposition home or self-care (01) ==
LOC: EDUNIT# → ED 16:06
DX: R07.2 Precordial pain (principal); F17.200 Nicotine dependence, unspecified, uncomplicated
CPT/HCPCS: 36415; 71045; 71260; 80053; 80320; 83690; 84484; 85025; 93005; 96374; 99283; Q9967

== ENCOUNTER 2019-01-13 12:52 | Emergency (ER) | payer MEDICAID, OTHER ==
[2019-01-13 13:03] VITALS: BP 136/78
[2019-01-13] MEDS ORDERED: LIDOCAINE 1%-EPI 1:100000 30 ML MDV SUBQ STA (14:29)
--- NOTE | 2019-01-13 14:34 | ED Physician Documentation ---
PD HPI HEENT - Stated complaint Stated Complaint: TOOTH PAIN - Chief complaint Chief Complaint: Heent - History obtained from History obtained from: Patient - History of Present Illness Timing - onset: Other (He has a painful tooth that is been bothering him for about 4 days with palpable abscess on the roof of the mouth. It is on the left maxilla. No fevers or chills.) Review of Systems Constitutional: denies: Fever, Chills Cardiac: denies: Chest pain / pressure, Palpitations Respiratory: denies: Dyspnea, Cough PD PAST MEDICAL HISTORY - Past Medical History Cardiovascular: None Respiratory: None, Pneumonia Neuro: None Endocrine/Autoimmune: None GI: None : None HEENT: None Psych: Depression, Anxiety, Bipolar disorder, Panic attacks Musculoskeletal: None Derm: None - Past Surgical History Past Surgical History: Yes HEENT: Myringotomy (tubes), Tonsil/Adenoidectomy - Present Medications Home Medications: Ambulatory Orders Medication Instructions Recorded Confirmed OXcarbazepine [Trileptal] 600 mg ORAL BID 12/31/15 08/03/18 buPROPion [Wellbutrin Sr] 400 mg ORAL DAILY 07/22/16 08/03/18 Aripiprazole [Abilify] 10 mg PO DAILY 02/27/17 08/03/18 Clindamycin HCl [Clindamycin 300MG 300 mg PO Q6H #40 capsule 01/13/19 CAP] Hydrocodone/Acetaminophen 1 - 2 each PO Q6H PRN #14 tablet 01/13/19 [Hydrocodon-Acetaminophen 5-325] - Allergies Allergies/Adverse Reactions: Allergies Allergy/AdvReac Type Severity Reaction Status Date / Time No Known Drug Allergies Allergy Verified 01/13/19 13:03 - Social History Does the pt smoke?: Yes Smoking Status: Current every day smoker Does the pt drink ETOH?: No Does the pt have substance abuse?: No Substance Use and Type: Marijuana - Immunizations Immunizations are current?: Yes - POLST Patient has POLST: No PD ED PE NORMAL - Vitals Vital signs reviewed: Yes - General General: Alert and oriented X 3, No acute distress - HEENT HEENT: Other (He is tender to the last 2 molars on the left mandible and there is a palpable fluctuant abscess on the hard palate adjacent to that.) - Neck Neck: Supple, no meningeal sign, No bony TTP - Neuro Neuro: Alert and oriented X 3, Normal speech - Psych Psych: Normal mood, Normal affect Results - Vitals Vitals: Vital Signs - 24 hr 01/13/19 13:02 Temperature 36.3 C L Heart Rate 63 Respiratory 22 Rate Blood Pressure 136/78 H O2 Saturation 98 Oxygen O2 Source Room air Procedures - Abscess I&D (location) Dental/Left hard palate Preparation: Lidocaine 1%, With epi Incision: Incised with scalpel, Purulent drainage Other: Pt tolerated well, Dressing applied, Antibiotic prescribed Departure - Departure Disposition: 01 Home, Self Care Clinical Impression: Dental abscess Condition: Good Record reviewed to determine appropriate education?: Yes Instructions: ED Abscess Dental Prescriptions: Clindamycin HCl [Clindamycin 300MG CAP] 300 mg PO Q6H #40 capsule Hydrocodone/Acetaminophen [Hydrocodon-Acetaminophen 5-325] 1 - 2 each PO Q6H PRN #14 tablet PRN Reason: pain Comments: It is very important that you follow-up with a dentist. When it comes to dental problems like yours, the emergency department can only offer a short-term solution to your long-term problem. A couple of low cost options for dental care include: [facility] in [place], calls [phone] for an appointment Or [facility] in [place], call [phone] for an appointment. Do not drink or drive while taking narcotic pain medication. Note that many narcotic pain relievers also contain Tylenol/acetaminophen. Please ensure that your total dose of acetaminophen from all sources does not exceed 3 g (3000 mg) per day. You may get constipated while on this medication. Take a stool softener such as Colace twice a day while you are on it. Also add an [id number] laxative such as senna or MiraLAX on any day that you do not have a bowel movement. If you received a narcotic pain medication or sedative while in the emergency department, do not drive for the next 24 hours. Your blood pressure was elevated today on check into the emergency department. This does not mean that you have hypertension, it is a common phenomenon to come to the emergency department and have elevated blood pressure. I recommend that you see your primary care physician within the week to have it rechecked when you are feeling better.
== END 2019-01-13 14:46 | disposition home or self-care (01) ==
LOC: ED 12:52
DX: K12.2 Cellulitis and abscess of mouth (principal); R03.0 Elevated blood-pressure reading, without diagnosis of hypertension
CPT/HCPCS: 41800; 99283